=== PATIENT | female | born 1960 | race Caucasian/White ===

== ENCOUNTER 2019-10-08 08:12 | Outpatient (CLI) | payer OTHER, SELFPAY ==
--- NOTE | 2019-10-08 09:00 | US_ITS ---
WS: [id number] ADDITIONAL VIEWS LEFT MAMMOGRAM LEFT BREAST ULTRASOUND HISTORY: LT BREAST DENSITY /ASYMMETRY COMPARISON: 08/09/2019 and 04/28/2017 LEFT MAMMOGRAM: Spot compression views and true ML. Asymmetry noted on the LEFT MLO projection nearly completely resolves with additional imaging and spo t compression views. Suspect this is a normal fibroglandular density. Ultrasound to follow. LEFT BREAST ULTRASOUND 2-D and color Doppler imaging submitted. Ultrasound directed posterior to the nipple demonstrates no abnormality. There are a few small cyst a t 3:00. US/US breast LT limited* [id number] IMPRESSION: BI-RADS: 2-Benign FOLLOW UP: 1 Year Follow-up Return to annual screening mammogram. The asymmetry seen in the LEFT breast res olves with additional imaging.
== END 2019-10-08 08:13 | disposition home or self-care (01) ==
LOC: RADSHAW 08:17
PROVIDERS: Visit Provider Nurse Practitioner Family
DX: N64.89 Other specified disorders of breast (principal); N60.02 Solitary cyst of left breast
CPT/HCPCS: 76642; 77065

== ENCOUNTER 2020-03-06 08:43 | Outpatient (CLI) | payer OTHER, SELFPAY ==
--- NOTE | 2020-03-06 08:48 | USCV_ITS ---
Ana Rosa Reyes Age: 60 Gender: F : 1960 Exam Date: 03/06/2020 09:09 Ordering Phys: Héctor Bower APN Technologist: Stephania Shi Exam Location: [facility] – [place]_ Indication: SWELLING, HX DVT HISTORY: DVT IN 2015 PROCEDURES: Venous duplex imaging was performed in only the right lower extremity. FINDINGS: Normal 2-D Doppler and augmentation and compressibility throughout the lower extremity venous structures. Additional imaging through the proximal calf veins also reveals no thrombus. Limited evaluation of the greater saphenous vein is patent with no thrombus.. The veins were found to be easily compressible with spontaneous blood flow. Non pulsatile flow pattern. CONCLUSIONS No evidence of DVT in the above-mentioned identifiable veins. Dr Jerzy Abad MD [facility] (Electronically Signed) Final Date: 06 March 2020 18:02 S
== END 2020-03-06 08:44 | disposition home or self-care (01) ==
LOC: RAD 08:47
PROVIDERS: PCP Nurse Practitioner Family; Visit Provider Nurse Practitioner Family
DX: Z86.718 Personal history of other venous thrombosis and embolism (principal); I10 Essential (primary) hypertension; E66.9 Obesity, unspecified
CPT/HCPCS: 93971

== ENCOUNTER 2021-01-12 07:21 | Outpatient (CLI) | payer OTHER, SELFPAY ==
--- NOTE | 2021-01-12 07:28 | MM_ITS ---
WS: [id number] BILATERAL DIGITAL SCREENING MAMMOGRAM WITH CAD CLINICAL INFORMATION: SCREENING HISTORY: Screening mammogram. No current complaints. COMPARISON: August 09, 2019 TECHNIQUE: Bilateral CC and MLO views. FINDINGS: Fatty-replaced breasts bilaterally. No suspicious focal mass, asymmetry, calcifications, or technical architect ural distortion. No evidence of malignancy. MM/[place] [id number] IMPRESSION: BI-RADS: 1-Negative FOLLOW UP: 1 Year Follow-up Recommend return to annual screening mammography.
== END 2021-01-12 07:22 | disposition home or self-care (01) ==
LOC: RADSHAW 07:23
PROVIDERS: PCP Nurse Practitioner Family; Visit Provider Nurse Practitioner Family
DX: Z12.31 Encounter for screening mammogram for malignant neoplasm of breast (principal)
CPT/HCPCS: 77067

== ENCOUNTER 2021-08-04 15:41 | Outpatient (CLI) | payer OTHER, SELFPAY ==
--- NOTE | 2021-08-04 15:49 | USCV_ITS ---
Ana Rosa Reyes Age: 61 Gender: F : 1960 Exam Date: 08/04/2021 16:04 Ordering Phys: Cheli Anaya APN Technologist: FRANK Exam Location: [facility] – [place] Indication: LEFT LEG PAIN PROCEDURES: Venous duplex imaging was performed in only the left lower extremity. The following venous structures were evaluated: common femoral vein, profunda vein, proximal portion of the greater saphenous vein, superficial femoral vein, and the popliteal vein. In addition, the posterior tibial and peroneal trunk were evaluated. Serial compression, augmentation maneuvers, and spectral Doppler flow evaluation were performed. FINDINGS: Normal 2-D Doppler and augmentation and compressibility throughout the lower extremity venous structures. Additional imaging through the proximal calf veins also reveals no thrombus. Limited evaluation of the greater saphenous vein is patent with no thrombus.. CONCLUSIONS No evidence of left lower extremity DVT. Leonel Roblero MD (Electronically Signed) Final Date: 04 August 2021 16:56 S
== END 2021-08-04 15:42 | disposition home or self-care (01) ==
LOC: RAD 15:44
PROVIDERS: PCP Nurse Practitioner Family; Visit Provider Nurse Practitioner Family
DX: M79.605 Pain in left leg (principal)
CPT/HCPCS: 93971

== ENCOUNTER 2021-12-26 11:00 | Emergency (ER) | payer OTHER, SELFPAY ==
[2021-12-26 11:56] VITALS: BP 126/77; PULSE 100; RESP 18; TEMP 36.9; O2SAT 98; BMI 37.0
--- NOTE | 2021-12-26 14:35 | USR_ITS ---
PROCEDURE INFORMATION: Exam: US Duplex Right Lower Extremity Veins, Limited Exam date and time: 12/26/2021 2:46 PM Age: 61 years old Clinical indication: Pain; Leg, lower; Right; Additional info: Leg pain swelling/ HX dvt TECHNIQUE: Imaging protocol: Real-time Duplex ultrasound of the Right Lower Extremity with 2-D herrera scale, color Doppler flow and spectral waveform analysis with image documentation. Limited exam was focused on the right lower extremity veins. COMPARISON: US ROR venous duplex LE RT 02/11/2015 11:09 AM FINDINGS: Right deep veins: Hypoechoic nonocclusive thrombus in the right peroneal and posterior tibial veins, popliteal vein, and femoral vein. Decreased compressibility in these veins. Right superficial veins: Unremarkable. Saphenofemoral junction is patent without thrombus. Soft tissues: Unremarkable. US/[place] [id number] IMPRESSION: Acute nonocclusive thrombus in the right peroneal and posterior tibial veins, popliteal vein, and femoral vein.
--- NOTE | 2021-12-26 14:38 | W.ED.GENADLT ---
HPI - General Adult General: Chief complaint: General Medical Stated complaint: swollen, red, painful lower R leg Time Seen by Provider: 12/26/21 14:33 Source: patient Mode of arrival: ambulatory Limitations: no limitations History of Present Illness: 61-year-old female presents emergency room with complaints of discomfort in her right leg. She has had this for last couple days to see nurse practitioner today was referred here for evaluation for DVT. She previously had an unprovoked DVT showed extensive clot in 2014 she was about 8 months on anticoagulants and then they were stopped. She is also had superficial thrombophlebitis in this leg in the past. Today she is complaining of pain and discomfort in the right lower leg extending up to the knee. No fall no trauma. No redness no erythema. Onset (ago): day(s) Location: lower extremity (Right) Severity: moderate Quality: aching Pain Consistency: intermittent Relieving factors: none Exacerbating factors: none Associated symptoms: Deny chest pain, confusion, cough, diaphoresis, decreased appetite, dyspnea, fevers/chills, headache(s), malaise, nausea, rash, palpitations, seizures, short of breath, syncope, vomiting or weakness Treatments prior to arrival: none Review of Systems Const: Denies: malaise or diaphoresis ENMT: Denies: throat pain, ear or mastoid pain, nasal discharge or nasal congestion Card: Denies: chest pain, palpitations or syncope Resp: Denies: dyspnea GI: Denies: nausea or vomiting : Denies: flank pain, difficulty voiding, dysuria, urinary frequency or urinary urgency Skin/Breast: Denies: rash Neuro: Denies: headache(s) or confusion [facility] ED PFSH: Medical History (Updated 01/05/22 @ 13:57 by Yamil Tay DO) DVT (deep vein thrombosis) in Social History Smoking and tobacco status: former smoker Physical Exam Const: GENERAL APPEARANCE: cooperative and comfortable ORIENTATION/CONSCIOUSNESS: Yes awake, Yes oriented to person, Yes oriented to place and Yes oriented to time HENMT: COMMON NORMALS: normocephalic, atraumatic and hearing grossly normal bilaterally HEAD & SCALP: normocephalic and atraumatic Neck/C-Spine: COMMON NORMALS: no JVD Resp: COMMON NORMALS: normal respiratory effort, No retractions, No use of accessory muscles and clear to auscultation bilaterally AUSCULTATION: clear to auscultation bilaterally Cardio: COMMON NORMALS: no JVD, regular rate, regular rhythm and No murmurs present (Cardio) RATE: regular rate RHYTHM: regular rhythm GI: COMMON NORMALS: Soft to palpation and No hepatosplenomegaly present AUSCULTATION: Yes normoactive bowel sounds PALPATION: Yes Soft to palpation, No Tenderness to palpation present (GI), No Guarding due to palpation present (GI) and Yes No hepatosplenomegaly present Extremity: COMMON NORMALS: normal to inspection, capillary refill normal, no clubbing, cyanosis or edema, no calf tenderness and no pedal edema Neuro: SENSORIUM/ORIENTATION: Yes oriented to person, Yes oriented to place and Yes oriented to time Skin: COMMON NORMALS: no rashes or lesions noted GENERAL SKIN EXAM: no rashes or lesions noted Course Vital Signs: Vital signs: Vital Signs Temperature 98.5 F 12/26/21 14:45 Pulse Rate 95 12/26/21 14:45 Respiratory Rate 18 12/26/21 14:45 Blood Pressure 130/80 12/26/21 14:45 Pulse Oximetry 98 12/26/21 14:45 [facility] - General Adult Medical Decision Making Venous duplex positive patient has DVT restart anticoagulant recommend she follow-up with heme-onc or pulmonology this is her second unprovoked DVT and likely 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 Lab Data I reviewed the patient's lab results. Radiology Impressions Venous Duplex 12/26/21 14:35 IMPRESSION: Acute nonocclusive thrombus in the right peroneal and posterior tibial veins, popliteal vein, and femoral vein. ADDENDUM: 12/26/21 1065 THIS REPORT CONTAINS FINDINGS THAT MAY BE CRITICAL TO PATIENT CARE. YAMIL Hoff confirmed on 12/26/2021 at 4:44 PM CDT that a copy of the report containing critical findings was received and there were no questions. Discharge Plan Discharge Patient Disposition: Home Clinical Impression: Deep vein thrombosis of right lower extremity Condition: Stable Prescriptions: New Kiara DVT-PE Treat 30D Start 5 mg (74 tabs) tablets,dose pack See Rx Instructions .ROUTE .COMPLEX Qty: 74 0RF Rx Instructions: orally per package directions No Action losartan 50 mg tablet 50 mg PO BID 0RF aspirin [Adult Low Dose Aspirin] 81 mg tablet,delayed release (DR/EC) 81 mg PO DAILY 0RF triamterene-hydrochlorothiazid 37.5-25 mg tablet 1 tab PO DAILY 0RF Discharge Orders: Discharge ED (Routine); Ordered 12/26/21 Ordered By: Yamil Tay Referrals: Anaya,SHANTELL Bower [Primary Care Provider] - Discharge Diet: Advance as tolerated Discharge Activity: Resume usual activity Patient Instructions: Opioid Safety Activity Restrictions/Additional Instructions: Follow-up with your primary care doctor for referral for recurrent unprovoked DVT Coding Level of Care Code ED Dining Services Director for Jazmine Samuels
[2021-12-26 14:45] VITALS: BP 130/80; PULSE 95; RESP 18; TEMP 36.9; O2SAT 98
[2021-12-26] MEDS: enoxaparin 100 mg/mL Syringe SUBCUT (15:16)
== END 2021-12-26 15:17 | disposition home or self-care (01) ==
PROVIDERS: Emergency Provider Family Medicine; PCP Nurse Practitioner Family
DX: I82.451 Acute embolism and thrombosis of right peroneal vein (principal); I82.441 Acute embolism and thrombosis of right tibial vein; I82.431 Acute embolism and thrombosis of right popliteal vein; I82.411 Acute embolism and thrombosis of right femoral vein; Z86.718 Personal history of other venous thrombosis and embolism; Z87.891 Personal history of nicotine dependence; Z79.82 Long term (current) use of aspirin
CPT/HCPCS: 93971; 96372; 99283; J1650

== ENCOUNTER 2022-02-22 09:34 | Outpatient (CLI) | payer OTHER, SELFPAY ==
--- NOTE | 2022-02-22 09:40 | MM_ITS ---
WS: [id number] VIEWS: MLO and CC views both breasts. 3D digital tomosynthesis is also included in this exam. Comparison made with prior exam of 09/13/2011, 11/12/2013, 04/28/2017, 08/09/2019 and 01/12/2021.. Findings: There was no sign of mass, architectural distortion or suspicious calcification in either breast. Fa tty MM/[place] [id number] Impression: BI-RADS: 2-Benign FOLLOW-UP: 1 Year Follow-up This mammogram was also analyzed by the Computer Aided Detection System R2 Imag e Press Box Custodian.
== END 2022-02-22 09:35 | disposition home or self-care (01) ==
LOC: RAD 09:37
PROVIDERS: PCP Nurse Practitioner Family; Visit Provider Nurse Practitioner Family
DX: Z12.31 Encounter for screening mammogram for malignant neoplasm of breast (principal)
CPT/HCPCS: 77063; 77067

== ENCOUNTER 2022-02-25 09:33 | Outpatient (CLI) | payer OTHER, SELFPAY ==
[2022-02-25 10:59] LABS: Blood Urea Nitrogen 20 mg/dL (8-23); Calcium 10.1 mg/dL (8.5-10.5); Carbon Dioxide 29 mmol/L (22-29); Chloride 96 mmol/L (98-107); Glomerular Filtration Rate 56.6 mL/min (90-130); Glucose 104 mg/dL (65-115); Osmolality Calculated 283 mOsm/kg (285-295); Sodium 135 mmol/L (136-145)
[2022-02-25 11:02] LABS: Anion Gap 13.8 (5-19); Potassium 3.8 mmol/L (3.5-5.1)
[2022-03-02 21:38] LABS: Plasma Renin Activity LC/MS/MS 5.77 ng/mL/h (0.25-5.82)
== END 2022-02-25 09:34 | disposition home or self-care (01) ==
PROVIDERS: PCP Nurse Practitioner Family; Visit Provider Internal Medicine Interventional Cardiology
DX: I10 Essential (primary) hypertension (principal)
CPT/HCPCS: 80048; 82088; 84244; 84443

== ENCOUNTER 2022-03-02 07:25 | Outpatient (CLI) | payer OTHER, SELFPAY ==
[2022-03-05 18:38] LABS: 24 Hour Urine Volume 3025 mL; 5-HIAA, 24 Hour Urine 4.8 mg/24 h (<=6.0)
== END 2022-03-02 07:26 | disposition home or self-care (01) ==
PROVIDERS: PCP Nurse Practitioner Family; Visit Provider Internal Medicine Interventional Cardiology
DX: I10 Essential (primary) hypertension (principal); Z79.899 Other long term (current) drug therapy
CPT/HCPCS: 83497; 83835

== ENCOUNTER → 2022-03-24 10:28 | Outpatient (BNVA) | payer OTHER, SELFPAY | PROVIDERS: PCP Nurse Practitioner Family; Visit Provider Internal Medicine Rheumatology | DX: I82.409 Acute embolism and thrombosis of unspecified deep veins of unspecified lower extremity (principal); Z79.899 Other long term (current) drug therapy; R76.8 Other specified abnormal immunological findings in serum; M54.9 Dorsalgia, unspecified; L71.9 Rosacea, unspecified | CPT/HCPCS: 85613; 85730; 86146; 86147; 86160; 86162; 86200; 86235; 86255; 86376 ==

== ENCOUNTER 2023-03-21 08:13 | Outpatient (CLI) | payer OTHER, SELFPAY ==
--- NOTE | 2023-03-21 08:19 | MM_ITS ---
WS: [id number] SCREENING DIGITAL TOMOSYNTHESIS MAMMOGRAM WITH CAD HISTORY: SCREENING COMPARISON: 02/22/2022, 01/12/2021 Bilateral CC and MLO with tomosynthesis views submitted. Synthetic mammography reviewed. Computer aid ed detection analyzed. Breast composition: There are scattered areas of fibroglandular density. No suspicious masses, microc alcifications or architectural distortion. MM/[place] [id number] IMPRESSION: BI-RADS: 1-Negative FOLLOW UP: 1 Year Follow-up
== END 2023-03-21 08:14 | disposition home or self-care (01) ==
LOC: RAD 08:16
PROVIDERS: PCP Nurse Practitioner Family; Visit Provider Nurse Practitioner Family
DX: Z12.31 Encounter for screening mammogram for malignant neoplasm of breast (principal)
CPT/HCPCS: 77063; 77067

== ENCOUNTER → 2023-05-17 15:40 | Outpatient (BNVA) | payer OTHER, SELFPAY | PROVIDERS: PCP Nurse Practitioner Family; Visit Provider Internal Medicine Rheumatology | DX: R76.8 Other specified abnormal immunological findings in serum (principal); M25.551 Pain in right hip; L71.9 Rosacea, unspecified; M54.9 Dorsalgia, unspecified; I82.409 Acute embolism and thrombosis of unspecified deep veins of unspecified lower extremity | CPT/HCPCS: 80076; 81001; 82565; 82570; 84156; 84520; 85025; 86140 ==

== ENCOUNTER 2023-06-22 15:52 | Outpatient (RCR) | payer OTHER, SELFPAY | END 2023-07-02 23:59 | disposition home or self-care (01) | LOC: SPT 15:52 | PROVIDERS: PCP Nurse Practitioner Family; Visit Provider Internal Medicine Rheumatology | DX: M25.551 Pain in right hip (principal) | CPT/HCPCS: 97110; 97161 ==

== ENCOUNTER 2023-07-03 06:00 | Outpatient (RCR) | payer OTHER, SELFPAY | END 2023-08-02 23:59 | disposition home or self-care (01) | LOC: SPT 06:00 | PROVIDERS: PCP Nurse Practitioner Family; Visit Provider Internal Medicine Rheumatology | DX: M25.551 Pain in right hip (principal) | CPT/HCPCS: 97110 ==

== ENCOUNTER 2023-08-03 06:00 | Outpatient (RCR) | payer OTHER, SELFPAY | END 2023-08-03 23:59 | disposition home or self-care (01) | LOC: SPT 06:00 | PROVIDERS: PCP Nurse Practitioner Family; Visit Provider Internal Medicine Rheumatology | DX: M25.551 Pain in right hip (principal) | CPT/HCPCS: 97110 ==

== ENCOUNTER 2024-08-01 08:57 | Outpatient (CLI) | payer OTHER, SELFPAY ==
--- NOTE | 2024-08-01 09:02 | MM_ITS ---
WS: [id number] BILATERAL SCREENING DIGITAL TOMOSYNTHESIS MAMMOGRAM WITH CAD HISTORY: SCREEN COMPARISON: 03/21/2023, 02/22/2022, 01/12/2021 Bilateral CC and MLO views with tomosynthesis and synthetic mammography submitted. Computer aided det ection analyzed. Breast composition: There are scattered areas of fibroglandular density. No suspicious masses, microc alcifications or architectural distortion. Scattered calcifications and a few asymmetries are stable. MM/MM scr BI tomosynthesis [id number] IMPRESSION: BI-RADS: 2 - Benign. FOLLOW UP: 1 Year Follow-up
== END 2024-08-01 08:58 | disposition home or self-care (01) ==
LOC: RAD 08:58
PROVIDERS: PCP Nurse Practitioner Family; Visit Provider Nurse Practitioner Family
DX: Z12.31 Encounter for screening mammogram for malignant neoplasm of breast (principal); R92.323 Mammographic fibroglandular density, bilateral breasts; R92.1 Mammographic calcification found on diagnostic imaging of breast; D64.89 Other specified anemias
CPT/HCPCS: 77063; 77067

== ENCOUNTER 2025-08-09 07:54 | Outpatient (CLI) | payer OTHER, SELFPAY ==
--- NOTE | 2025-08-09 07:59 | MM_ITS ---
WS: [id number] BILATERAL SCREENING DIGITAL TOMOSYNTHESIS MAMMOGRAM WITH CAD HISTORY: SCREENING COMPARISON: 08/01/2024, 03/21/2023, 02/22/2022, 08/09/2019 Bilateral CC and MLO views with tomosynthesis and synthetic mammography submitted. Computer aided detection analyzed. Breast composition: There are scattered areas of fibroglandular density. No suspicious masses, microcalcifications or architectural distortion. Long-term stability asymmetry upper outer quadrant LEFT breast at a middle depth. Benign calcifications in each breast. MM/MM [facility] tomosynthesis [id number] IMPRESSION: BI-RADS: 2 - Benign. FOLLOW UP: 1 Year Follow-up
== END 2025-08-09 07:55 | disposition home or self-care (01) ==
LOC: RAD 07:56
PROVIDERS: PCP Nurse Practitioner Family; Visit Provider Nurse Practitioner Family
DX: Z12.31 Encounter for screening mammogram for malignant neoplasm of breast (principal); R92.323 Mammographic fibroglandular density, bilateral breasts; R92.1 Mammographic calcification found on diagnostic imaging of breast; N64.89 Other specified disorders of breast
CPT/HCPCS: 77063; 77067